=== PATIENT | female | born 1935 | race African-American/Black ===

== ENCOUNTER → 2020-07-13 15:36 | Outpatient (CLI) | payer MEDICARE, MEDICAID, SELFPAY ==
[2020-07-13 16:32] LABS: COVID19 -Nasal RAPID Negative (Negative)
== END ==
PROVIDERS: Visit Provider Physician Assistant
DX: Z11.59 Encounter for screening for other viral diseases (principal)
CPT/HCPCS: 87635

== ENCOUNTER 2020-07-16 07:29 | Day surgery (SDC) | payer MEDICARE, MEDICAID, SELFPAY ==
[2020-07-03 10:18] VITALS: BMI 37.0
[2020-07-16] VITALS (9 sets, daily range): BP systolic 102–159; BP diastolic 50–71; PULSE 61–78; RESP 12–18; TEMP 36.1–36.8; O2SAT 94–100; BMI 37.0
[2020-07-16] MEDS: LACTATED RINGERS 1,000 ML 42 ML IV (08:12)
--- NOTE | 2020-07-16 08:23 | P.HP_ITS ---
History of Present Illness History of Present Illness Date Patient Seen: 07/16/20 Time Patient Seen: 08:23 Chief complaint: SDC Narrative: A 84-year-old female with long history of bilateral hand numbness. 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 Patient History Medical History Anxiety Asthma Claustrophobia Diabetes Diabetic neuropathy Fibromyalgia Hearing impaired History of revision of total replacement of right knee joint HLD (hyperlipidemia) HTN (hypertension) Osteoarthritis Rheumatoid arthritis Surgical History History of arthroplasty of both knees History of arthroplasty of left shoulder History of arthroplasty of right shoulder History of bilateral hip arthroplasty History of lumbar spinal fusion (08/2017) History of phacoemulsification of cataract of left eye with intraocular lens implantation History of revision of total shoulder arthroplasty (2017) Hx of appendectomy Hx of eye surgery Family & Social History Social History: household members family Prior Living Arrangements House Tobacco & Substance use: Smoking Status Never smoker alcohol intake former Substance Use Type does not use Meds Home Medications and Allergies Home Medications Medication Instructions Recorded Confirmed Type albuterol sulfate 2 puff INHALATION Q4-6H 07/03/20 07/16/20 History amlodipine 10 mg PO BEDTIME 07/03/20 07/16/20 History atorvastatin 10 mg PO BEDTIME 07/03/20 07/16/20 History azelastine 1 spray INTRANASAL DAILY 07/03/20 07/16/20 History ferrous sulfate [iron] 325 mg PO DAILY 07/03/20 07/16/20 History fluticasone propionate [Flonase 1 spray INTRANASAL DAILY 07/03/20 07/16/20 History Allergy Relief] furosemide [Lasix] 40 mg PO QMWF 07/03/20 07/16/20 History hydrochlorothiazide 25 mg PO SEEINSTR 07/03/20 07/16/20 History linagliptin [Tradjenta] 5 mg PO QAM 07/03/20 07/16/20 History losartan 100 mg PO DAILY 07/03/20 07/16/20 History lubiprostone [Amitiza] 24 mcg PO DAILY 07/03/20 07/16/20 History metoprolol succinate 50 mg PO DAILY 07/03/20 07/16/20 History pregabalin 100 mg PO TID 07/03/20 07/16/20 History ropinirole 1 mg PO BEDTIME 07/03/20 07/16/20 History sumatriptan succinate 50 mg PO Q2-4H PRN 07/03/20 07/16/20 History tizanidine 4 mg PO BEDTIME 07/03/20 07/16/20 History tramadol 50 mg PO Q8H PRN 07/03/20 07/16/20 History Allergies Allergy/AdvReac Type Severity Reaction Status Date / Time morphine Allergy Severe Anaphylaxis Verified 07/16/20 07:52 streptomycin Allergy Severe Anaphylaxis Verified 07/16/20 07:52 Review of Systems Review of Systems ROS: Yes All systems reviewed with the patient and are negative except as otherwise documented Exam Vital Signs (past 8 hours): - 07/16/20 07:58 Temperature 97.3 F L Pulse Rate 78 Respiratory Rate 16 Blood Pressure 152/71 H Pulse Oximetry 97 Oxygen Delivery Method Room Air Narrative Exam Narrative: On physical exam, signs of thenar atrophy bilaterally. No sign of any intrinsic wasting. Patient is still able to fully flex and extend the fingers no sign of any clawing. Still able to oppose the thumbs. Significant neuropathy in the median nerve distribution bilaterally. Signs of ulnar neuropathy just on the left side no sign of any cervical radiculopathy. Positive Tinel's, thumb compression, Phalens test bilaterally. 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 Due to these findings we did recommend surgical treatment to decompress the median nerve at the carpal tunnel as well as the ulnar nerve at the cubital tunnel. In regards to the median nerve main goal of surgery is to keep things from getting worse. Discussed with the patient that due to the findings on the nerve study not exp ecting much in regards to overall improvement of the nerve due to the amount of damage it has sustained. I would expect better overall improvement in the ulnar nerve left side. Patient fully understands the risks and limitations associated procedure questions and concerns were answered to satisfaction. Time Spent With Patient Time with patient: less than 15 minutes
--- NOTE | 2020-07-16 08:26 | PM.PREOP ---
Pre-operative Note COVID-19 COVID-19 status: Negative Result date/Date tested (Pos, Neg/Pending): 07/14/20 Interval Note History & Physical reviewed/Exam performed by Physician: Yes Changes to H&P: No
[2020-07-16] MEDS: CEFAZOLIN 2 GM/100 ML FROZ.PIGGY IV (08:43)
--- NOTE | 2020-07-16 09:02 | SUR.OPER ---
Supine on padded OR bed, head on pillow, right arm secured on padded arm boards at <90 degrees abduction, left arm prepped into field and supported on hand table, legs uncrossed, safety belt at thigh, tape over blanket over lower legs.
[2020-07-16] MEDS: BUPIVACAINE 0.5% W/ EPI (PF) 30 ML VIAL INJ (09:05)
--- NOTE | 2020-07-16 09:33 | P.OP_ITS ---
Operative Date/Time/Diagnoses Date of procedure: 07/16/20 Time of procedure: 09:00 Pre-op diagnosis: Left carpal tunnel, left cubital tunnel Post-op diagnosis: same Procedure & Clinicians Procedure: Left carpal tunnel release, left cubital tunnel release Same procedure as scheduled: Yes Indications: Physical exam findings as well as EMG study positive for both carpal tunnel and cubital tunnel Surgeon: Jayson Hopkins Click Yes if Unassisted: Yes Anesthesia Type: General Operative Notes Findings: Compression of the median nerve at the carpal tunnel compression of the ulnar at cubital tunnel Closure Type: primary Specimen(s): none sent Estimated Blood Loss (mL): 0 Blood products transfused: none Tourniquet time (min): 25 Procedure in detail: On date of service, the patient was met in the holding area. Patients operative site was signed and witnessed by the OR staff. The surgery was once again discussed with the patient, and any remaining questions they had were answered fully. Patient was taken back to the operating theater and placed on the operating table in a supine position. Great care was taken to ensure that all bony prominences were carefully padded. A well-padded tourniquet was placed up along the upper extremity. A timeout was performed to verify patient's name, procedure, and operative site. The arm was then prepped and draped in the normal sterile fashion. A 15 blade was used to incise through skin In the center of the palm. Pickups and tenotomy scissors were used to dissect down until the palmar fascia was visualized. The palmar fascia was then sharply incised using a 15 blade. This gave us good visualization of the carpal ligament. A small opening was made into the carpal ligament, and a curved hemostat was placed into that opening. A 15 blade was then used to sharply incise the carpal ligament with the structures beneath being protected by the hemostat. Pickups and Metzenbaum scissors were used to complete the decompression both distally and proximally. This provided a complete dec ompression of the median nerve. Wound was irrigated and then closed with nylon. We then turned our attention to the cubital tunnel. Ten blade was used to make an incision centered over the cubital tunnel. Ten blade was used incise through skin and fascial tissue. Electrocautery was used to achieve hemostasis. Deep knife was used to proceed with sharp dissection. Next, Metzenbaum scissors were used to identify the nerve proximal to the cubital tunnel. This was then decompressed proximally. Next, the ulnar nerve was decompressed through the cubital tunnel by releasing the cubital tunnel. This decompression was continued distally providing a complete decompression of the nerve. Wound was irrigated and then closed in a layered fashion. The hand was then cleaned, dried, and dressed. Patient was taken to the PACU in stable condition. Complications: none Post-operative Condition: stable Disposition: PACU Plan for aftercare: Patient will follow our postoperative protocol for carpal tunnel cubital tunnel release.
[2020-07-16] MEDS: fentaNYL 100 MCG/2 ML INJ IV ×2 (09:48→09:54)
[2020-07-16] MEDS: HYDROCODONE/ACET 5/325 TABLET 1 TAB PO (10:02)
== END 2020-07-16 11:00 | disposition home or self-care (01) ==
PROVIDERS: PCP Internal Medicine; Referring Provider Internal Medicine; Visit Provider Orthopaedic Surgery
PROC: (CPT 64721; principal; 2020-07-16 08:45)
PROC: (CPT 64718; 2020-07-16 08:45)
DX: G56.02 Carpal tunnel syndrome, left upper limb (principal); G56.22 Lesion of ulnar nerve, left upper limb; E11.9 Type 2 diabetes mellitus without complications; I10 Essential (primary) hypertension; J45.909 Unspecified asthma, uncomplicated
CPT/HCPCS: 64718; 64721; J0690; J1100; J2405; J2704; J3010

== ENCOUNTER → 2020-10-23 11:31 | Outpatient (CLI) | payer OTHER, MEDICAID, SELFPAY ==
[2020-10-23 13:29] LABS: COVID19 -Nasal RAPID Negative (Negative)
== END ==
PROVIDERS: PCP Internal Medicine; Visit Provider Nurse Practitioner Family
DX: Z01.812 Encounter for preprocedural laboratory examination (principal); Z20.822 Contact with and (suspected) exposure to COVID-19
CPT/HCPCS: 87635; C9803

== ENCOUNTER 2020-10-24 11:48 | Day surgery (SDC) | payer OTHER, MEDICAID, SELFPAY ==
[2020-10-24 12:31] VITALS: BP 172/74; PULSE 76; RESP 24; TEMP 36.9; O2SAT 97; BMI 38.0
[2020-10-24] MEDS: LACTATED RINGERS 1,000 ML 42 ML IV (13:00)
--- NOTE | 2020-10-24 13:44 | PM.PREOP ---
Pre-operative Note COVID-19 COVID-19 status: Negative Result date/Date tested (Pos, Neg/Pending): 10/22/20 Interval Note History & Physical reviewed/Exam performed by Physician: Yes Changes to H&P: No
--- NOTE | 2020-10-24 13:44 | PM.HP.1 ---
History of Present Illness History of Present Illness Date Patient Seen: 10/24/20 Time Patient Seen: 13:45 Chief complaint: SDC Narrative: 84-year-old female with a history of bilateral carpal tunnel. Patient is status post a left carpal tunnel release. Patient is still having issues with the right hand and is interested in a right carpal tunnel release. Patient History Medical History Anxiety Asthma Claustrophobia Diabetes Diabetic neuropathy Fibromyalgia Hearing impaired History of revision of total replacement of right knee joint HLD (hyperlipidemia) HTN (hypertension) Osteoarthritis Rheumatoid arthritis Right carpal tunnel syndrome Surgical History History of arthroplasty of both knees History of arthroplasty of left shoulder History of arthroplasty of right shoulder History of bilateral hip arthroplasty History of lumbar spinal fusion (08/2017) History of phacoemulsification of cataract of left eye with intraocular lens implantation History of revision of total shoulder arthroplasty (2017) Hx of appendectomy Hx of eye surgery Family & Social History Social History: household members family Prior Living Arrangements House Tobacco & Substance use: Smoking Status Never smoker alcohol intake former Substance Use Type does not use Meds Home Medications and Allergies Home Medications Medication Instructions Recorded Confirmed Type Tradjenta 5 mg PO QAM 07/03/20 10/24/20 History albuterol sulfate 2 puff INHALATION Q4-6H 07/03/20 10/24/20 History amlodipine 10 mg PO BEDTIME 07/03/20 10/24/20 History atorvastatin 10 mg PO BEDTIME 07/03/20 10/24/20 History azelastine 1 spray INTRANASAL DAILY 07/03/20 10/24/20 History ferrous sulfate [iron] 325 mg PO DAILY 07/03/20 10/24/20 History fluticasone propionate [Flonase 1 spray INTRANASAL DAILY 07/03/20 10/24/20 History Allergy Relief] furosemide [Lasix] 40 mg PO SEEINSTR 07/03/20 10/24/20 History hydrochlorothiazide 25 mg PO QMWF 07/03/20 10/24/20 History metoprolol succinate 50 mg PO DAILY 07/03/20 10/24/20 History pregabalin 100 mg PO TID 07/03/20 10/24/20 History sumatriptan succinate 50 mg PO Q2-4H PRN 07/03/20 10/15/20 History tramadol 50 mg PO Q8H PRN 07/03/20 10/24/20 History Vitamin D3 1 tab PO DAILY 10/15/20 10/24/20 History ascorbic acid (vitamin C) [Vitamin 500 mg PO DAILY 10/15/20 10/24/20 History C] calcium 1 tab PO DAILY 10/15/20 10/24/20 History naproxen sodium [Aleve] 220 mg PO Q8H PRN 10/15/20 10/24/20 History losartan 100 mg PO DAILY 10/24/20 10/24/20 History Allergies Allergy/AdvReac Type Severity Reaction Status Date / Time morphine Allergy Severe Anaphylaxis Verified 07/16/20 07:52 streptomycin Allergy Severe Anaphylaxis Verified 07/16/20 07:52 Review of Systems Review of Systems ROS: Yes All systems reviewed with the patient and are negative except as otherwise documented Exam Vital Signs (past 8 hours): - 10/24/20 12:31 Temperature 98.4 F Pulse Rate 76 Respiratory Rate 24 Blood Pressure 172/74 H Pulse Oximetry 97 Oxygen Delivery Method Room Air Narrative Exam Narrative: On physical exam, no sign of any thenar atrophy or intrinsic wasting. Patient has full range of motion of her wrist and fingers. Decreased sensation in the median nerve distribution. Positive Tinel's, thumb compression and Phalen test. Assessment & Plan Assessment & Plan narrative: 84-year-old female with physical exam findings as well as EMG study positive for right carpal tunnel. Patient is interested in proceeding with a right carpal tunnel release. She fully understands the risks and limitations associated with the procedure and all of her questions and concerns were answered to her full satisfaction. COVID-19 COVID-19 status: Negative Time Spent With Patient Time with patient: less than 15 minutes
--- NOTE | 2020-10-24 14:29 | SUR.OPER ---
Supine on padded OR bed, head on pillow on foam wedge, left arm secured on padded arm boards at <90 degrees abduction, right arm draped free on black arm table legs uncrossed, safety belt at thigh, tape over blanket over lower legs.
[2020-10-24] MEDS: BUPIVACAINE 0.5% W/ EPI (PF) 30 ML VIAL INJ (14:35)
[2020-10-24 14:49] VITALS: BP 139/71; PULSE 80; RESP 15; TEMP 36.4; O2SAT 95
[2020-10-24 14:54] VITALS: BP 142/72; PULSE 69; RESP 12; O2SAT 97
[2020-10-24 14:59] VITALS: BP 139/86; PULSE 83; RESP 15; O2SAT 98
[2020-10-24 15:04] VITALS: BP 177/72; PULSE 80; RESP 13; O2SAT 97
[2020-10-24] MEDS: HYDROCODONE/ACET 5/325 TABLET 1 TAB PO (15:04)
[2020-10-24 15:09] VITALS: BP 182/73; PULSE 81; RESP 10; TEMP 36.7; O2SAT 95
--- NOTE | 2020-11-07 10:01 | PM.OP.1 ---
Operative Date/Time/Diagnoses Date of procedure: 10/24/20 Time of procedure: 16:00 Pre-op diagnosis: Right carpal tunnel Post-op diagnosis: same Procedure & Clinicians Procedure: Right carpal tunnel release Same procedure as scheduled: Yes Indications: Right carpal tunnel Surgeon: Jayson Hopkins Click Yes if Unassisted: Yes Anesthesia Type: General Operative Notes Closure Type: primary Specimen(s): none sent Estimated Blood Loss (mL): 0 Blood products transfused: none Tourniquet time (min): 19 Procedure in detail: On date of service, the patient was met in the holding area. Patients operative site was signed and witnessed by the OR staff. The surgery was once again discussed with the patient, and any remaining questions they had were answered fully. Patient was taken back to the operating theater and placed on the operating table in a supine position. Great care was taken to ensure that all bony prominences were carefully padded. A well-padded tourniquet was placed up along the upper extremity. A timeout was performed to verify patient's name, procedure, and operative site. The arm was then prepped and draped in the normal sterile fashion. A 15 blade was used to incise through skin In the center of the palm. Pickups and tenotomy scissors were used to dissect down until the palmar fascia was visualized. The palmar fascia was then sharply incised using a 15 blade. This gave us good visualization of the carpal ligament. A small opening was made into the carpal ligament, and a curved hemostat was placed into that opening. A 15 blade was then used to sharply incise the carpal ligament with the structures beneath being protected by the hemostat. Pickups and Metzenbaum scissors were used to complete the decompression both distally and proximally. This provided a complete decompression of the median nerve. The wound was then irrigated and closed with nylon. The hand was then cleaned, dried, and dressed. Patient was taken to the PACU in stable condition. Complications: none Post-operative Condition: stable Disposition: PACU Plan for aftercare: Patient will follow our postoperative protocol for carpal tunnel release
== END 2020-10-24 15:28 | disposition home or self-care (01) ==
PROVIDERS: PCP Internal Medicine; Referring Provider Orthopaedic Surgery; Visit Provider Orthopaedic Surgery
PROC: (CPT 64721; principal; 2020-10-24 13:15)
DX: G56.01 Carpal tunnel syndrome, right upper limb (principal); F41.9 Anxiety disorder, unspecified; J45.909 Unspecified asthma, uncomplicated; I10 Essential (primary) hypertension; E78.5 Hyperlipidemia, unspecified; M06.9 Rheumatoid arthritis, unspecified; E11.42 Type 2 diabetes mellitus with diabetic polyneuropathy
CPT/HCPCS: 64721; J1100; J2405; J2704; J3010

== ENCOUNTER → 2022-03-13 11:51 | Outpatient (CLI) | payer OTHER, MEDICAID, SELFPAY ==
--- NOTE | 2022-03-13 | DI.CT.S_ITS ---
PROCEDURE: CT ABDOMEN PELVIS W CON INDICATIONS: RIGHT LOWER QUADRANT PAIN TECHNIQUE: After the administration of oral and IV contrast, axial sections were acquired from the lung bases to the pubic symphysis. Coronal and sagittal reformats were performed. For radiation dose reduction, the following was used: automated exposure control, adjustment of mA and/or kV according to patient size. COMPARISON: None. FINDINGS: Image quality: Excellent. Lung bases: Unremarkable. Heart: No significant findings. ABDOMEN: Liver: Unremarkable. Gallbladder: Gallbladder is distended. No gallbladder wall thickening or calcified gallstone is seen. Biliary ducts: Unremarkable. Pancreas: Unremarkable. Spleen: Unremarkable. Adrenal Glands: Unremarkable. Kidneys and Ureters: Bilateral renal cysts are seen. No stones or hydronephrosis. No hydroureter. Stomach and Bowel: There is no bowel obstruction. No stomach or small bowel wall thickening. Appendix is not definitively identified. No bowel wall thickening or mesenteric fat stranding is seen in right lower quadrant abdomen. [id number] fecal stasis in the colon is seen. Moderate sigmoid diverticulosis is noted without colonic wall thickening or pericolonic fat stranding. No abscess collection. Peritoneum: No abnormal intraperitoneal fluid. No free air. Ventral Wall: Small umbilical hernia is seen containing fat only. Abdominal Nodes: No retroperitoneal or mesenteric adenopathy by size criteria. Vessels: Aorta and inferior vena cava are normal in size. Moderate atherosclerotic calcifications in abdominal aorta is seen. PELVIS: Pelvic Organs: Unremarkable. Bladder: Unremarkable. Pelvic Nodes: No enlarged lymph nodes. Miscellaneous: No inguinal hernias are seen. Bones: Patient is status post bilateral total hip arthroplasty. Fixation of lower thoracic spine is also seen. No suspicious bony lesion. No acute vertebral body compression fracture. Degenerative disc disease throughout lower thoracic and lumbar spine is seen. IMPRESSION: 1. Appendix is not identified. No CT evidence of acute appendicitis seen in right lower quadrant abdomen. Mild constipation. Sigmoid diverticulosis without CT evidence of acute diverticulitis. No abscess collection. No free fluid or free air. 2. No renal stone or hydronephrosis. Bilateral renal cysts. 3. Distended gallbladder without CT evidence of acute cholecystitis. 4. Extensive postsurgical changes in lower thoracic spine and bilateral hip. Degenerative disc disease throughout thoracic and lumbar spine. No acute compression fracture. Dictated by: Inocente Barboza M.D. on 03/13/2022 at 15:58 Approved by: Inocente Barboza M.D. on 03/13/2022 at 16:04
[2022-03-13 12:49] LABS: Estimated Glomerular Filt Rate > 60 mL/min (>60)
== END ==
PROVIDERS: PCP Internal Medicine; Referring Provider Internal Medicine; Visit Provider Internal Medicine
DX: K57.30 Diverticulosis of large intestine without perforation or abscess without bleeding (principal); K59.00 Constipation, unspecified; R10.31 Right lower quadrant pain; M51.34 Other intervertebral disc degeneration, thoracic region; M51.36 Other intervertebral disc degeneration, lumbar region; Z79.899 Other long term (current) drug therapy
CPT/HCPCS: 36415; 74177; 82565; Q9967

== ENCOUNTER → 2024-04-05 11:51 | Outpatient (CLI) | payer MEDICARE, MEDICAID, SELFPAY ==
[2024-04-05 12:24] LABS: Add Manual Diff / Slide Review NO; Basophils Absolute Auto 0 /uL (0-100); Basophils Percent Auto 0.3 % (0-2); Eosinophils Absolute Auto 100 /uL (0-450); Eosinophils Percent Auto 1.8 % (2-4); Hematocrit 34.9 % (36-46); Hemoglobin 11.7 g/dL (12.0-16.0); Lymphocytes Absolute Auto 2000 /uL (1100-4500); Lymphocytes Percent Auto 35.8 % (25-40); Mean Corpuscular HGB Conc 33.6 % (30-36); Mean Corpuscular Hemoglobin 32.9 PG (26-34); Mean Corpuscular Volume 98.1 fL (80-100); Monocytes Absolute Auto 700 /uL (0-900); Monocytes Percent Auto 11.9 % (3-14); Neutrophils Absolute Auto 2900 /uL (1500-7000); Neutrophils Percent Auto 50.2 % (50-75); Platelet Count 198 X10^3/uL (150-400); Red Blood Cell Count 3.56 X10^6/uL (4.0-5.2); Red Cell Distribution Width 13.4 % (11.6-14.8); White Blood Cell Count 5.7 X10^3/uL (4.5-11.0)
[2024-04-05 12:33] LABS: Hemoglobin A1C% w Est Avg Glu 5.4 % (4.0-6.0)
[2024-04-05 12:40] LABS: BUN Creatinine Ratio 20.4 (6-22); Blood Urea Nitrogen 20 mg/dL (7-17); Calcium 9.6 mg/dL (8.4-10.2); Carbon Dioxide 28 mmol/L (22-32); Chloride 107 mmol/L (98-107); Estimated Glomerular Filt Rate 55 mL/min (>60); Glucose 129 mg/dL (80-110); HEMOLYSIS < 15 (0-50); Potassium 3.7 mmol/L (3.4-5.1); Sodium 142 mmol/L (137-145)
--- NOTE | 2024-04-05 12:56 | EKG_ITS ---
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
== END ==
PROVIDERS: PCP Internal Medicine; Referring Provider Orthopaedic Surgery Orthopaedic Surgery of the Spine; Visit Provider Orthopaedic Surgery Orthopaedic Surgery of the Spine
DX: Z01.812 Encounter for preprocedural laboratory examination (principal); Z01.818 Encounter for other preprocedural examination; R73.9 Hyperglycemia, unspecified
CPT/HCPCS: 36415; 80048; 83036; 85025; 93005

== ENCOUNTER 2024-04-12 13:50 | Day surgery (SDC) | payer MEDICARE, MEDICAID, SELFPAY ==
[2024-04-06 14:41] VITALS: BMI 35.9
[2024-04-12] VITALS (16 sets, daily range): BP systolic 140–206; BP diastolic 70–104; PULSE 68–92; RESP 12–18; TEMP 36.2–36.6; O2SAT 91–100; BMI 35.9
--- NOTE | 2024-04-12 | DI.RAD.S_ITS ---
PROCEDURE: XR LUMBAR SPINE 2-3V INDICATIONS: LAMINECTOMY L4-5 TECHNIQUE: Intraoperative fluoroscopic spot films COMPARISON: None. FINDINGS: L4-5 laminectomy in progress IMPRESSION: Fluoroscopic guidance Approved by: Armin Parham M.D. on 04/13/2024 at 17:04
[2024-04-12] MEDS: LACTATED RINGERS 1,000 ML 42 ML IV ×2 (14:48→16:50)
[2024-04-12] MEDS: ACETAMINOPHEN 325 MG TABLET 975 MG PO (14:51)
--- NOTE | 2024-04-12 15:52 | PM.PREOP ---
Pre-operative Note Interval Note History & Physical reviewed/Exam performed by Physician: Yes Changes to H&P: No
--- NOTE | 2024-04-12 16:20 | PM.OP.1 ---
Operative Date/Time/Diagnoses Date of procedure: 04/12/24 Time of procedure: 16:40 Pre-op diagnosis: 1. Lumbar spinal stenosis with neurogenic claudication Post-op diagnosis: same Procedure & Clinicians Procedure: 1. L4-5 laminectomies with bilateral partial facetecomies 2. L4-5 partial discectomy for decompression 3. Utilization of microsurgical technique and operating microscope Same procedure as scheduled: Yes Indications: Patient has been having chronic back pain and worsening lumbar radiculopathy and symptoms of neurogenic claudication. Patient was found to have multiple level degenerative lumbar with spondylolisthesis and severe spinal stenosis at L4-5 correlating with her symptoms. Patient failed multiple conservative management with worsening pain weakness and numbness in her lower extremity. Patient has been having difficulty performing activity of daily living. After discussing risks benefits of treatment options, patient elected proceed with surgery. Surgeon: Saba Gao Casting Machine Adjuster: Lesly Diaz Click Yes if Unassisted: No Anesthesia Type: General Operative Notes Closure Type: primary Specimen(s): none sent Estimated Blood Loss (mL): 5 Blood products transfused: none Procedure in detail: Patient was seen in the preoperative area. Risks and benefits of the surgery was discussed with the patient. Informed consent was obtained from the patient and placed in the chart. Surgical site was marked. Patient was taken to the operative room. General anesthesia was administered. Prophylactic antibiotic was given to the patient less than 30 min before the incision was made. Patient was placed into a prone position on the Danielito table. Patient's back was then prepped and draped in the sterile fashion. Time-out was performed at this time. Using AP and lateral C-arm imaging the interval between L4-5 was identified and marked on patient's back. A 1 inch incision 1 in from midline was made on the right side. The patient was identified to have auto fusion on her MRI image at L4-5. Additional decompression was performed by performing a right-sided L4-5 total facetectomy. The fascia was incised in line with skin incision. Globus MARS retractors was placed inside the incision and docked onto the L4 lamina. Using microsurgical technique and operating microscope, a L4 laminectomy was performed using a Kerrison rongeur. Liagamentum flavum was resected at the site of the laminotomy. Either side of the dura was exposed. Left partial facetcomies and right total facetectomy was performed was performed to further decompress the lateral recess. There was no evidence of instability after the laminectomy facetectomy was completed due to patient's auto fusion at L4-5 interbody. After the laminectomy was completed, the area medial lateral superior and inferior to the area of the laminectomy was inspected and explored using a micro curette. No other impinging structure was identified. The wound was then irrigated with sterile normal saline. 40 mg Depo-Medrol was placed into the epidural space. The deep fascia was closed with 1-0 Vicryl. The subcutaneous tissue was closed with 2-0 Vicryl. The skin was closed with 4-0 Monocryl. Patient tolerated the procedure well. There were no complications. Patient was transferred recovery room in stable condition. The Operation could not have been safely performed without compromising the technical result or length of the procedure, without the assistance of a skilled surgical elastic knitter hand frame. The surgical elastic knitter hand frame was medically necessary for proper positioning, retraction and manipulation of instruments, proper exposure, surgical preparation, and manipulation of tissue. Complications: none Post-operative Condition: stable Disposition: PACU Plan for aftercare: Admit for overnight observation
[2024-04-12] MEDS: CEFAZOLIN 2 GM/100 ML PREMIX 100 ML IV (16:22)
--- NOTE | 2024-04-12 16:44 | SUR.OPER ---
Prone on spine table, head in foam head support, padded chest and pelvic supports, gel pad at knees, lower legs supported by pillows; nipples, genitalia and toes free of pressure, arms secured on foam padded arm boards at <90 degrees abduction. Tape over blanket at thigh secured to table.
[2024-04-12] MEDS: BUPIVACAINE 0.25% (PF) 30 ML, EPINEPHrine 0.15 MG INJ (16:48)
[2024-04-12] MEDS: HYDROMORPHONE 1 MG INJ IV ×4 (18:10→18:30)
[2024-04-12] MEDS: methocarbamoL 500 MG TABLET PO (18:24)
[2024-04-12] MEDS: OXYCODONE IR 5 MG TABLET PO (18:54)
[2024-04-12] MEDS: LOSARTAN 50 MG TABLET 100 MG PO (20:27)
[2024-04-12] MEDS: AMLODIPINE 5 MG TABLET PO (21:48)
[2024-04-12] MEDS: SENNOSIDES 8.6 MG TABLET 17.2 MG PO (21:52)
[2024-04-12] MEDS: ATORVASTATIN 20 MG TABLET 10 MG PO (21:53)
[2024-04-12] MEDS: DOCUSATE 100 MG CAPSULE PO (21:55)
[2024-04-12] MEDS: LACTATED RINGERS 1,000 ML 125 ML IV (21:56)
[2024-04-13] MEDS: CEFAZOLIN 2 GM/100 ML PREMIX 100 ML IV ×2 (00:09→08:56)
[2024-04-13] MEDS: HYDROCODONE/ACET 5/325 TABLET 1 TAB PO ×2 (03:14→07:27)
[2024-04-13 04:00] VITALS: BP 142/80; PULSE 75; RESP 16; TEMP 36.3; O2SAT 100
[2024-04-13] MEDS: LACTATED RINGERS 1,000 ML 125 ML IV (06:30)
--- NOTE | 2024-04-13 07:49 | P.DS_ITS ---
History of Present Illness History of Present Illness Chief complaint: [facility] [place] Narrative: Irene is a pleasant 88 year old female who is POD#1 s/p L4-5 laminectomies with bilateral partial facetecomies and L4-5 partial discectomy for decompression by Dr. Gao. This morning she reports she is doing well, having some moderate pain still but is able to be controlled w/ oral pain medication. Lives at home w/ granddaughter and her who are willing and able to aid in patients post-op care, they do have steps up to the house but no steps to navigate within the home. She has worked w/ PT twice today and is doing well, she was able to do stairs and walk in the hallways. Currently has a purewik in place. Denies fever, chills, chest pain, SOB, nausea, vomiting. Operative Date/Time/Diagnoses Date of procedure: 04/12/24 Time of procedure: 16:40 Pre-op diagnosis: 1. Lumbar spinal stenosis with neurogenic claudication Post-op diagnosis: same Procedure & Clinicians Procedure: 1. L4-5 laminectomies with bilateral partial facetecomies 2. L4-5 partial discectomy for decompression 3. Utilization of microsurgical technique and operating microscope Same procedure as scheduled: Yes Indications: Patient has been having chronic back pain and worsening lumbar radiculopathy and symptoms of neurogenic claudication. Patient was found to have multiple level degenerative lumbar with spondylolisthesis and severe spinal stenosis at L4-5 correlating with her symptoms. Patient failed multiple conservative management with worsening pain weakness and numbness in her lower extremity. Patient has been having difficulty performing activity of daily living. After discussing risks benefits of treatment options, patient elected proceed with surgery. Surgeon: Saba Gao Pony Rougher: Lesly Diaz Click Yes if Unassisted: No Anesthesia Type: General Discharge Providers Provider Discharge Date: 04/13/24 Primary care physician: Patricia Obrien MD Consults: 04/12/24 20:06 Consult to Occupational Therapy Evaluate & Treat Comment: Physician Instructions: Evaluate and treat Consult to Physical Therapy Evaluate & Treat Comment: Physician Instructions: Evaluate and Treat Discharge provider: Elva Ferrer PA-C Summary Hospital Course Discharge Diagnosis: s/p L4-5 laminectomies with bilateral partial facetecomies and L4-5 partial discectomy for decompression Hospital Course: Hospital course largely uncomplicated, difficulty mobilizing initially in the AM of POD#1. Exam Vital Signs (past 8 hours): - 04/13/24 04:00 Temperature 97.4 F L Pulse Rate 75 Respiratory Rate 16 Blood Pressure 142/80 H Pulse Oximetry 100 Oxygen Delivery Method Nasal Cannula Oxygen Flow Rate 2 Narrative Exam Narrative: Patient lying comfortably in bed during our interview today. No acute distress. AOx3. 5/5 strength with DF, PF, EHL bilaterally. Gross sensation intact throughout bilateral lower extremities. Calves soft and compressible w/o swelling bilaterally. SCDs are not on however. Brisk capillary refill, pulses intact. Post-surgical dressing clean, dry and intact over the lumbar spine without drainage. [facility] Medical History Right carpal tunnel syndrome Claustrophobia Anxiety Diabetes HLD (hyperlipidemia) HTN (hypertension) Asthma Hearing impaired Osteoarthritis Rheumatoid arthritis Diabetic neuropathy Fibromyalgia History of revision of total replacement of right knee joint Surgical History (Updated 04/06/24 @ 14:48 by Irena Paredes RN) History of carpal tunnel surgery of right wrist (10/24/20) History of carpal tunnel surgery of left wrist (07/16/20) Hx of appendectomy Hx of eye surgery History of phacoemulsification of cataract of left eye with intraocular lens implantation History of arthroplasty of both knees History of bilateral hip arthroplasty History of arthroplasty of left shoulder History of revision of total shoulder arthroplasty (2018) History of arthroplasty of right shoulder History of lumbar spinal fusion (08/2017) Social History household members: family Smoking Status: Never smoker alcohol intake: former Discharge Assessment & Plan Assessment and Plan Assessment: Stable s/p L4-5 laminectomies with bilateral partial facetecomies and L4-5 partial discectomy for decompression. Plan of Treatment: 1) Plan to discharge to home today with grandson pending PT evaluation. 2) Continue multimodal pain management. Post-op pain Rx sent to pharmacy today. 3) Mechanical DVT prophylaxis. Encouraged bed leg exercises and movement to help prevent blood clot. 4) Maintain BLT restrictions for 6 weeks. 5) Keep dressing intact, clean, dry until 2 week postop appointment. No soaking the incision site in pools or tubs. No topical ointments or creams to the incision site. 6) Follow up at [facility] in 2 weeks for a postop appointment and wound check. All patient and her grandsons questions were answered, they demonstrates understanding and are in agreement with the plan. Call our office if any questions or concerns arise. Discharge Plan Discharge Plan Patient Disposition: Home Provider Discharge Comment: Rxs for oxycodone and Zofran sent to [facility] from office. Discharge orders & Medications Discharge Orders: Discharge (Order); Ordered 04/13/24 Ordered By: Elva Ferrer Prescriptions: New hydrocodone-acetaminophen 5-325 mg Tablet 1 tab PO Q4H PRN (Reason: Pain, Moderate (4-6)) Qty: 30 0RF docusate sodium 100 mg Capsule 100 mg PO BID Qty: 30 0RF Continued ascorbic acid (vitamin C) [Vitamin C] 500 mg Tablet 500 mg PO DAILY Vitamin D3 1 tab PO DAILY calcium 1 tab PO DAILY acetaminophen 325 mg Tablet 325 mg PO Q6H PRN (Reason: Pain (Scale Score 1-3)) duloxetine 60 mg capsule 120 mg PO QPM losartan 50 mg tablet 50 mg PO DAILY furosemide [Lasix] 40 mg Tablet 20 mg PO SEEINSTR Patient Comments: Takes on wednesday, wednesday, wednesday, , wednesday atorvastatin 10 mg Tablet 10 mg PO BEDTIME metoprolol succinate 50 mg Tablet Extended Release 24 Hr 50 mg PO DAILY amlodipine 10 mg Tablet 5 mg PO QAM ferrous sulfate [iron] 325 mg (65 mg iron) Tablet 325 mg PO DAILY albuterol sulfate 90 mcg/actuation Hfa Aerosol Inhaler 2 puff INHALATION Q4-6H fluticasone propionate [Flonase Allergy Relief] 50 mcg/actuation [place],Suspension 1 spray INTRANASAL DAILY Tradjenta 5 mg Tablet 5 mg PO QAM Follow up/Referrals: Patricia Obrien MD [Primary Care Provider] - Saba Gao MD [Physician] - 05/03/24 1:00 pm (Follow up w/ Maurilio Doe PA-C, at [facility] office in [place] on 05/03/24 at 1:00pm You also have a 6 week post-op appointment at our [employer] office on 05/23/24 at 1:20pm with Dr. Gao.) Diet/Activity/Treatments Diet: Diet as Tolerated and Regular Activity: No deep bending or twisting at the waist. No lifting more than 10 pounds. Skin/Wound/Dressing Care Report to your healthcare provider any signs of infection, such as:: chills, fever, night sweats, unusual drainage and unusual redness Dressing: May shower. Keep dressing as dry as possible. If dressing becomes wet or dirty, may remove and replace with clean, dry gauze. No bathing or otherwise soaking incision. Do not apply any creams, ointments, or lotions to incision. Visit Report/Discharge Packet Instructions: DI for Laminectomy, DI for Prescription Opioid Use Stand Alone Forms: Patient Portal/API Discharge Data Primary Care Provider: Patricia Obrien Attending Provider: Saba Gao
[2024-04-13] MEDS: ACETAMINOPHEN 325 MG TABLET 650 MG PO (08:55)
[2024-04-13 09:03] VITALS: BMI 35.9
--- NOTE | 2024-04-13 09:06 | PT.IIE ---
Current Diagnoses Spinal stenosis, lumbar region with neurogenic claudication (04/12/24) Surgery Performed Operation Date: 04/12/24 15:45 Actual Procedures p L4-5 Laminectomy - Saba Gao MD Surgical History (Last Updated 04/06/24 @ 14:48 by Irena Paredes RN) History of arthroplasty of both knees History of arthroplasty of left shoulder History of arthroplasty of right shoulder History of bilateral hip arthroplasty History of carpal tunnel surgery of left wrist (07/16/20) History of carpal tunnel surgery of right wrist (10/24/20) History of lumbar spinal fusion (08/2017) History of phacoemulsification of cataract of left eye with intraocular lens implantation History of revision of total shoulder arthroplasty (2017) Hx of appendectomy Hx of eye surgery Medical History (Last Reviewed 10/24/20 @ 13:45 by Jayson Hopkins MD) Anxiety Asthma Claustrophobia Diabetes Diabetic neuropathy Fibromyalgia Hearing impaired History of revision of total replacement of right knee joint HLD (hyperlipidemia) HTN (hypertension) Osteoarthritis Rheumatoid arthritis Right carpal tunnel syndrome Physical Therapy Inpatient Evaluation/Re-Eval M1 PT/OT-IP Prior Functional Status Start: 04/13/24 08:02 Freq: NEEDED Status: Active Protocol: Document 04/13/24 08:00 PRIMO (Rec: 04/13/24 09:06 PRIMO [id number]) Medical Review Prior Functional Status Medical History Reviewed Yes Communication Unsure baseline diet and pt is [place] Mobility and Gait Pt reports she ambulates in her home with 4WRW and performs stair training with rail and cane Activities of Daily Living and IADL's Grand-daughter assists with bathing and dressing Social History Household Members family Living Arrangements House Number of Floors (Floors) One Floor Number of Stairs To Enter/Railing? 5 steps and then 7 steps with B rails and she uses one rail and cane to mobilize on steps at home Home Environment High Toilet,Walk in Shower Home Equipment Four Wheel Walker,Raised Toilet Seat w/Armrests,Shower Seat with Backrest,Hand Held Shower,Grab Bars Near Toilet, Grab Bars In Shower Additional Social History Comment Adjustable bed without rails M2 PT-IP Current Condition Start: 04/13/24 08:02 Freq: NEEDED Status: Active Protocol: Document 04/13/24 08:00 MB (Rec: 04/13/24 09:06 [id number]) Physical Therapy Current Condition Current Condition Evaluation Date 04/13/24 Treatment Diagnosis S/p L4-5 laminectomy and partial disectomy M3 PT-IP Subjective Start: 04/13/24 08:02 Freq: NEEDED Status: Active Protocol: Document 04/13/24 08:00 MB (Rec: 04/13/24 09:06 [id number]) Subjective Physical Therapy Visit Type Type Initial Evaluation Visit Start Time 08:00 Visit Stop Time 08:40 Number of SPEECH SCIENTIST Visits 0 Physical Therapy Visit Comments Patient Comments Pt states that her pain is high and she is agreeable to PT. Therapy Pain Assessment Pain When Pain Assessed During Mobility Pain Present Pain Present Pain Reported Location back Intensity 8 Scale Used Numeric (0 - 10) Description Acute Pain Behaviors Facial Grimacing,Guarding Pain Management Techniques Distraction,Re-positioning, Timing of Activity with Medications M4 PT-IP Mobility and Gait Start: 04/13/24 08:02 Freq: NEEDED Status: Active Protocol: Document 04/13/24 08:00 MB (Rec: 04/13/24 09:06 [id number]) PT-Bed Mobility Assessment Rolling Type of Rolling Log Rolling,Roll to Right Level of Assist Contact Guard Assistance,1 Person Assistance Supine to Sit Supine to Sit Contact Guard Assistance,1 Person Assistance,Bedrails Sit to Supine Sit to Supine Contact Guard Assistance Scooting Scooting to Edge of Bed Contact Guard Assistance PT-Transfer Assessment Sit to and From Stand Sit to and from Stand Minimal Assistance,1 Person Assistance,Use of Upper Extremities Equipment Transfer Assistive Device Gait Belt,Front Wheeled Walker Orthotic/Prosthetic Devices or Brace: No Transfers Transfer Destination Chair Transfer Technique Stepping Transfer Ability Level of Assist Minimal Assistance Comments Mobility Comments Pt moves slowly and has a lot of pain in back with rolling, scooting and getting to EOB. Gait Assessment Gait Gait Assistance Required: Minimum Assistance,1 Person Assist Distance (Feet) 2 Able to Maintain Weight Bearing Status Yes During Gait Assistive Devices Assistive Device Gait Belt,Front Wheeled Walker Orthotic/Prosthetic Devices or Brace: No Gait Deviations General Gait Pattern Antalgic,Decreased Stride Length,Decreased Feet Clearance,Flexed Trunk,Step-to Gait,Wide Based Gait Factors Limiting Gait Function Factors Limiting Gait Function Decreased Activity Tolerance, Decreased Strength,Difficulty Following Directions,Limited Range of Motion,Pain,Poor Balance,Poor Safety Awareness Comments Gait Comments Slow and antalgic mobility from bed to chair, decreased step-length and foot clearance PT-Balance Assessment Sitting Balance and Reactions Static Sitting Balance Ability Good Dynamic Sitting Balance Ability Good Standing Balance and Reactions Static Standing Balance Ability Good Dynamic Standing Balance Ability Fair Device Used RW M5 PT-IP Objective Assessments Start: 04/13/24 08:02 Freq: NEEDED Status: Active Protocol: Document 04/13/24 08:00 MB (Rec: 04/13/24 09:06 [id number]) Orientation Orientation/Cognition Level of Alertness Alert Orientation Name,Age,Birthday,Month,Date, Year,Day of Week,Place, Situation Language Function Ability No Deficits Noted Safety Awareness Decreased Safety Awareness Memory Description No Deficits Noted Comments Pt does occasionally mix up where towns are located and where she has lived and often states things like, [place], [place] or [facility]. Gross Range of Motion Upper Extremity ROM Impairments Defer to OT Lower Extremity ROM Assessment Within Functional Limits Strength Lower Extremity Strength Assessment Within Functional Limits Comments Strength Comments Functionally observed only and did not MMT post-op Sensation Assessment Comments Sensation Comments Pt denies paresthesias and reports pain only Muscle Tone Muscle Tone WNL Yes M6 PT-IP Treatment Start: 04/13/24 08:02 Freq: NEEDED Status: Active Protocol: Document 04/13/24 08:00 MB (Rec: 04/13/24 09:06 [id number]) Physical Therapy Treatment Education Education Provided Precautions,Post-Op Packet, Safety Other Treatments Other Treatment Performed PT reviews log rolling and brings in back booklet and OT review further during assessment M7 PT-IP Assessment and Plan Start: 04/13/24 08:02 Freq: NEEDED Status: Active Protocol: Document 04/13/24 08:00 MB (Rec: 04/13/24 09:06 [id number]) PT Summary Assessment and Plan Potential Rehabilitation Potential Good Status of Condition at Evaluation Evolving Summary Impairments Pain,ROM,Strength,Balance, Coordination,Cognition,Bed Mobility,Transfers,Gait, Activity Tolerance Progress Towards Goals Progressing Toward Goals,Slow Progress due to Pain Assessment Summary Pt is an 88 y/o female presenting with reports of high pain s/p L4-5 lami. Pt demonstrates log rolling well today and she has pain with bed mobility, transfers and stepping. Pt lives at home with grand-daughter and she does have many stair to enter. Con't acute PT for progressive mobility, gait and stair training. Review back precautions and log rolling with pt. Goals Bed Mobility Goal Independent Transfer Goal Standby Assistance,Front Wheeled Walker,Four Wheeled Walker Gait Goal Standby Assistance,Front Wheel Walker,Four Wheel Walker Gait Distance 100 Other Goals Pt will ascend and descend 3 steps x2 with rail and cane and no more than CGA to allow safe home entrance. Days to Meet Goals 5 Frequency of Treatment Frequency Of Treatment Twice a Day Treatment Plan Physical Therapy Treatment Plan Bed Mobility Training,Transfer Training,Gait Training, Therapeutic Exercise,Balance Retraining,Post Op Education, Discharge Planning,Hot or Cold Pack,Neuromuscular Re-ed, Coordination Retraining,Manual Therapy Other Recommendations and Next Treatment Review back precautions and Focus log rolling, progress gait and stair training Precautions Lumbar Precautions Log Roll,No Twisting,Limit Bending,Lifting Restriction of 10 lbs,Gait Belt above Incisional Area Weight Bearing Status Weight Bearing Status Weight Bear as Tolerated Recommendations To Nursing Amount of Assist Needed 1 Person Assist Discharge Recommendations PT Discharge Recommendations Home with Assistance,Home Health Transportation Needs at Discharge Private Vehicle
[2024-04-13 09:17] VITALS: BP 176/93; PULSE 75; RESP 18; TEMP 36.8; O2SAT 100
[2024-04-13] MEDS: FLUTICASONE 120 SPRAY/16 GM SPRAY.SUSP NASAL (09:25)
[2024-04-13 09:26] VITALS: BP 176/93; PULSE 75
[2024-04-13] MEDS: DOCUSATE 100 MG CAPSULE PO (09:26)
[2024-04-13] MEDS: LOSARTAN 50 MG TABLET 100 MG PO (09:26)
[2024-04-13] MEDS: FERROUS SULFATE 325 MG TABLET PO (09:26)
[2024-04-13] MEDS: ASCORBIC ACID 500 MG TABLET PO (09:26)
[2024-04-13] MEDS: METOPROLOL ER 50 MG TABLET PO (09:26)
--- NOTE | 2024-04-13 10:53 | OT.IP.EVAL ---
Current Diagnoses Spinal stenosis, lumbar region with neurogenic claudication (04/12/24) Surgery Performed Operation Date: 04/12/24 15:45 Actual Procedures p L4-5 Laminectomy - Saba Gao MD Past Medical History (Last Reviewed 10/24/20 @ 13:45 by Jayson Hopkins MD) Anxiety Asthma Claustrophobia Diabetes Diabetic neuropathy Fibromyalgia Hearing impaired History of revision of total replacement of right knee joint HLD (hyperlipidemia) HTN (hypertension) Osteoarthritis Rheumatoid arthritis Right carpal tunnel syndrome Surgical History (Last Updated 04/06/24 @ 14:48 by Irena Paredes RN) History of arthroplasty of both knees History of arthroplasty of left shoulder History of arthroplasty of right shoulder History of bilateral hip arthroplasty History of carpal tunnel surgery of left wrist (07/16/20) History of carpal tunnel surgery of right wrist (10/24/20) History of lumbar spinal fusion (08/2017) History of phacoemulsification of cataract of left eye with intraocular lens implantation History of revision of total shoulder arthroplasty (2017) Hx of appendectomy Hx of eye surgery Occupational Therapy Inpatient Evaluation/Re-Eval M1 PT/OT-IP Prior Functional Status Start: 04/13/24 08:02 Freq: NEEDED Status: Active Protocol: Document 04/13/24 12:30 [facility] (Rec: 04/13/24 12:53 [facility] [id number]) Medical Review Prior Functional Status Medical History Reviewed Yes Communication Unsure baseline diet and pt is [place] Mobility and Gait Pt reports she ambulates in her home with 3WRW and performs stair training with rail and cane Activities of Daily Living and IADL's Grand-daughter assists with bathing and dressing Prior Functional Level (Other details) Per pt someone is always at the house to be able to assist her. Social History Household Members family Living Arrangements House Number of Floors (Floors) One Floor Number of Stairs To Enter/Railing? 5 steps and then 7 steps with B rails and she uses one rail and cane to mobilize on steps at home Home Environment High Toilet,Walk in Shower Home Equipment Front Wheel Walker,Four Wheel Walker,Bedside Commode,Raised Toilet Seat w/Armrests,Shower Seat with Backrest,Hand Held Shower,Grab Bars Near Toilet, Grab Bars In Shower Additional Social History Comment Adjustable bed without rails M2 OT-IP Current Condition Start: 04/13/24 12:29 Freq: Status: Active Protocol: Document 04/13/24 12:30 [facility] (Rec: 04/13/24 12:53 [facility] [id number]) Occupational Therapy Current Condition Current Condition Evaluation Date 04/13/24 Treatment Diagnosis S/P L4-5 laminectomies with armand facetecomies, L4-5 partial discect Diagnosis Onset Date 04/12/24 M3 OT- IP Subjective and Pain Start: 04/13/24 12:29 Freq: Status: Active Protocol: Document 04/13/24 12:30 [facility] (Rec: 04/13/24 12:53 [facility] [id number]) OT- Subjective Occupational Therapy Visit Type Type Initial Evaluation Visit Start Time 10:10 Visit Stop Time 10:53 Occupational Therapy Visit Comments Patient Comments Pt wanting to get back to bed. Patient/Caregiver Goals TO go home. OT Pain Assessment Pain When Pain Assessed At Rest Pain Present Pain Present Pain Reported Location back Intensity 6 Scale Used Numeric (0 - 10) M4 OT- IP ADL's Start: 04/13/24 12:29 Freq: Status: Active Protocol: Document 04/13/24 12:30 [facility] (Rec: 04/13/24 12:53 [facility] [id number]) OT [id number] General Evaluation Self-Feeding Ability Independent OT ADL-Grooming General Evaluation Grooming Ability Independent Comments OT Grooming Comments after set-up OT ADL-Oral Care General Eval Oral Care Ability Independent Comments Oral Care Comments after set-up Educated if standing to spit into a cup or hinge at her hips to best follow her back precautions OT ADL-Dressing General Eval Lower Body Dressing Ability Maximum Assistance Comments OT Dressing Comments Able to show pt LB dressing equipment. OT ADL-Toileting Comments OT Toileting Comments Pt will continue to benefit from use of pads and brief at night and having the BSC next to the bed. In addition, pt aware to make sure to get assist. OT ADL-Bathing Comments OT Bathing Comments Pt's grand daughter to assist. Educated best to cover the dressing from getting wet. M5 OT- IP IADL's Start: 04/13/24 12:29 Freq: Status: Active Protocol: Document 04/13/24 12:30 [facility] (Rec: 04/13/24 12:53 [facility] [id number]) OT-Instrumental Activities of Daily Living Home Safety Awareness Awareness of Need for Assistance at Home Good Awareness Ability to Problem Solve Emergency Able to Problem Solve Situations Medication Management Medication Management Caregiver Administers Money Management Money Management Caregiver Provides Assistance Meal Preparation Meal Preparation Caregiver Provides Assist Administrative Liaison Administrative Liaison Caregiver Provides Assist Driving Driving Caregiver Provides Assist M6 OT- IP Functional Cognition Start: 04/13/24 12:29 Freq: Status: Active Protocol: Document 04/13/24 12:30 [facility] (Rec: 04/13/24 12:53 [facility] [id number]) Cognitive Factors Limiting Selfcare Function Cognitive Ability Level of Alertness Alert Patient Orientation Name,Age,Birthday,Month,Date, Year,Day of Week,Place, Situation Attention Span Ability Capable of Focused Attention Ability to Follow Commands Able to Follow One Step Commands with Increased Time, Able to Follow One Step Commands with Repetition Cognitive Comments Cognitive Assessment Comments Pt able to follow commands for back precautions for ADl and mobility needs. OT- Vision and Hearing OT- Hearing Assessment OT- Hearing Assessment Hearing Impaired,Use of Hearing Aids OT- Vision Assessment Visual Acuity Glasses All The Time M7 OT- IP Mobility and Balance Start: 04/13/24 12:29 Freq: Status: Active Protocol: Document 04/13/24 12:30 [facility] (Rec: 04/13/24 12:53 [facility] [id number]) OT- Bed Mobility Assessment Sit to Supine Sit to Supine Assist Moderate Assistance OT-Transfer Assessment Sit to and From Stand Sit to and from Stand Minimal Assistance Transfers Transfer Ability Minimal Assistance Technique Transfer Destination Bed,Chair Devices Transfer Assistive Devices Gait Belt,Front Wheeled Walker Comments Mobility Comments RUMA to stand to the FWW and to transfer to the bed. Pt needing assist to get her legs back into bed. OT- Balance Assessment Sitting Balance and Reactions Static Sitting Balance Ability Good Dynamic Sitting Balance Ability Fair Standing Balance and Reactions Static Standing Balance Ability Fair Dynamic Standing Balance Ability Fair M8 OT- IP Objective Assessments Start: 04/13/24 12:29 Freq: Status: Active Protocol: Document 04/13/24 12:30 [facility] (Rec: 04/13/24 12:53 [facility] [id number]) OT Gross Range of Motion Upper Extremity Range of Motion ROM Impairments WFL for age OT Strength Comments Strength Comments WFl for age M9 OT- IP Assessment and Plan Start: 04/13/24 12:29 Freq: Status: Active Protocol: Document 04/13/24 12:30 [facility] (Rec: 04/13/24 12:53 [facility] [id number]) OT Summary Assessment and Plan Potential Rehabilitation Potential Good Analytic Complexity at Evaluation Low Summary OT Impairments Pain,Strength,Balance, Functional Mobility,Grooming, Dressing,Toileting,Bathing, Toilet Transfers,Shower Transfers,Activity Tolerance Progress Towards Goals Progressing Toward Goals,Slow Progress due to Pain Assessment Summary Pt low complexity and main barriers are pain, needing assist for transfers and for all ADL needs. Pt to go home with 24 available assist. Pt states has been doing outpt PT for BPBV and on hold until after recovery of her back. Pt did not complain of any symptoms during OT eval. Goals Grooming Goal Independent Dressing Goal Minimal Assistance Toileting Goal Minimal Assistance Toilet Transfer Goal Standby Assistance Shower Transfer Goal Contact Guard Assistance Days to Meet Goals 7 Frequency of Treatment Other frequency 5x/week Treatment Plan OT Treatment Plan ADL Training,Functional Mobility,Patient/Family Education,Discharge Planning Discharge Recommendations OT Discharge Recommendations Home with 24/7 Assist Available Home Equipment Needs LB dressing equipment, toilet paper aid Transportation Needs at Discharge Private Vehicle
[2024-04-13] MEDS: HYDROCODONE/ACET 5/325 TABLET 2 TAB PO (11:18)
--- NOTE | 2024-04-13 13:06 | PT.IPTN ---
Current Diagnoses Spinal stenosis, lumbar region with neurogenic claudication (04/12/24) Surgery Performed Operation Date: 04/12/24 15:45 Actual Procedures p L4-5 Laminectomy - Saba Gao MD Physical Therapy Treatment Note M2 PT-IP Current Condition Start: 04/13/24 08:02 Freq: NEEDED Status: Active Protocol: Document 04/13/24 08:00 MB (Rec: 04/13/24 09:06 MB [id number]) Physical Therapy Current Condition Current Condition Evaluation Date 04/13/24 Treatment Diagnosis S/p L4-5 laminectomy and partial disectomy M3 PT-IP Subjective Start: 04/13/24 08:02 Freq: NEEDED Status: Active Protocol: Document 04/13/24 14:03 TS (Rec: 04/13/24 14:18 TS [id number]) Subjective Physical Therapy Visit Type Type Treatment Note Visit Start Time 13:06 Visit Stop Time 13:50 Notes Family present 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 She is agreeable to PT. Therapy Pain Assessment Pain When Pain Assessed At Rest Pain Present Pain Present Pain Reported M4 PT-IP Mobility and Gait Start: 04/13/24 08:02 Freq: NEEDED Status: Active Protocol: Document 04/13/24 14:03 TS (Rec: 04/13/24 14:18 TS [id number]) PT-Bed Mobility Assessment Rolling Type of Rolling Log Rolling,Roll to Right Level of Assist Contact Guard Assistance,1 Person Assistance Supine to Sit Supine to Sit Minimal Assistance,1 Person Assistance,Bedrails Sit to Supine Sit to Supine Minimal Assistance,1 Person Assistance Scooting Scooting to Edge of Bed Standby Assistance PT-Transfer Assessment Sit to and From Stand Sit to and from Stand Minimal Assistance,1 Person Assistance,Use of Upper Extremities Equipment Transfer Assistive Device Gait Belt,Front Wheeled Walker Orthotic/Prosthetic Devices or Brace: No Comments Mobility Comments Pt was educated on spinal precautions of no bending, no twisting and no lifting of more than 10LBS. STS with FWW Amanuel, pt requires cues for STS technique. She ambulated with FWW ~25'CGA/SBA with a slow step to gait. Pt was brought to stairs in w/c. She performed steps x3 with single rail, cane and CGA from family member. She ambulated another ~25'SBA/CGA with FWW, requested brought back to room in w/c. She ambulated another ~15' with 4WW, which pt has at home, she had balance with 4WW. She performed bed mobility CGA/Amanuel and required max cues for sequencing. Recommended pt spend time in chair to avoid difficulty of bed if needed. Pt was left back in chair, all needs met, nursing notified. Gait Assessment Gait Gait Assistance Required: Standby Assistance,Contact Guard Assist,1 Person Assist Distance (Feet) 65 Able to Maintain Weight Bearing Status Yes During Gait Assistive Devices Assistive Device Gait Belt,Front Wheeled Walker ,4 Wheeled Walker Orthotic/Prosthetic Devices or Brace: No Gait Deviations General Gait Pattern Antalgic,Decreased Stride Length,Decreased Feet Clearance,Flexed Trunk,Step-to Gait,Wide Based Gait Factors Limiting Gait Function Factors Limiting Gait Function Decreased Activity Tolerance, Decreased Strength,Difficulty Following Directions,Limited Range of Motion,Pain,Poor Balance,Poor Safety Awareness Comments Gait Comments Pt has 3WW and 4WW at home, recommended use of 4WW. Stair Climbing Assessment Evaluation Level of Assist On Stairs Contact Guard Assistance,1 Person Assistance Devices Stair Climbing Assistive Devices Straight Cane,Left Railing Technique/Endurance Stair Climbing Direction Ascend and Descend Stair Climbing Technique Step to Step Number of Steps Climbed 3 PT-Balance Assessment Sitting Balance and Reactions Static Sitting Balance Ability Good Dynamic Sitting Balance Ability Fair Standing Balance and Reactions Static Standing Balance Ability Fair Dynamic Standing Balance Ability Fair Device Used FWW/4WW M5 PT-IP Objective Assessments Start: 04/13/24 08:02 Freq: NEEDED Status: Active Protocol: Document 04/13/24 08:00 MB (Rec: 04/13/24 09:06 MB [id number]) Orientation Orientation/Cognition Level of Alertness Alert Orientation Name,Age,Birthday,Month,Date, Year,Day of Week,Place, Situation Language Function Ability No Deficits Noted Safety Awareness Decreased Safety Awareness Memory Description No Deficits Noted Comments Pt does occasionally mix up where towns are located and where she has lived and often states things like, [place], [place] or [facility]. Gross Range of Motion Upper Extremity ROM Impairments Defer to OT Lower Extremity ROM Assessment Within Functional Limits Strength Lower Extremity Strength Assessment Within Functional Limits Comments Strength Comments Functionally observed only and did not MMT post-op Sensation Assessment Comments Sensation Comments Pt denies paresthesias and reports pain only Muscle Tone Muscle Tone WNL Yes M6 PT-IP Treatment Start: 04/13/24 08:02 Freq: NEEDED Status: Active Protocol: Document 04/13/24 14:03 TS (Rec: 04/13/24 14:18 TS [id number]) Physical Therapy Treatment Education Education Provided Precautions,Post-Op Packet, Safety M7 PT-IP Assessment and Plan Start: 04/13/24 08:02 Freq: NEEDED Status: Active Protocol: Document 04/13/24 14:03 TS (Rec: 04/13/24 14:18 TS [id number]) PT Summary Assessment and Plan Potential Rehabilitation Potential Good Summary Impairments Pain,ROM,Strength,Balance, Coordination,Cognition,Bed Mobility,Transfers,Gait, Activity Tolerance Progress Towards Goals Progressing Toward Goals Assessment Summary Irene is making some progress with her mobility. She increased her ambulation to ~50' with FWW and ~15 with 4WW. She requires heavy cueing for mobility, especially with bed mobility. Recommended pt try sleeping in recliner at home to avoid the difficulty of getting in/out of bed on her own. She performed stairs x3 with single handrail and use of SPC with CGA from family member. PT is recommending pt return home with assist and HHPT. Goals Bed Mobility Goal Independent Transfer Goal Standby Assistance,Front Wheeled Walker,Four Wheeled Walker Gait Goal Standby Assistance,Front Wheel Walker,Four Wheel Walker Gait Distance 100 Other Goals Pt will ascend and descend 3 steps x2 with rail and cane and no more than CGA to allow safe home entrance. Days to Meet Goals 5 Frequency of Treatment Frequency Of Treatment Twice a Day Treatment Plan Physical Therapy Treatment Plan Bed Mobility Training,Transfer Training,Gait Training, Therapeutic Exercise,Balance Retraining,Post Op Education, Discharge Planning,Hot or Cold Pack,Neuromuscular Re-ed, Coordination Retraining,Manual Therapy Other Recommendations and Next Treatment Review back precautions and Focus log rolling, progress gait and stair training Precautions Lumbar Precautions Log Roll,No Twisting,Limit Bending,Lifting Restriction of 10 lbs,Gait Belt above Incisional Area Weight Bearing Status Weight Bearing Status Weight Bear as Tolerated Recommendations To Nursing Amount of Assist Needed 1 Person Assist Discharge Recommendations PT Discharge Recommendations Home with Assistance,Home Health Transportation Needs at Discharge Private Vehicle
--- NOTE | 2024-04-13 13:15 | CM.DANOTE ---
Initial DCP Assessment Visit Note Reviewed EMR and team rounds for status updates. Met with pt at bedside to introduce self and role. Pt was found to be alert/oriented, and able to share that she is having a lot more pain than she thought she would be in. She lives modified independently with her granddaughter and her in their own home in [place]. Family will also plan to transport her at time of d/c. Payor: Manuel Dietz Attending: Dr. Gao Pt is a 88 year-old F post-op day 1 from a laminectomy/discectomy. She has a hx of worsening lower back pain and balance issues. She uses a walker and a cane at baseline, and has been able to navigate the 12-steps in her home by using her cane and pulling herself up the stairs. Pt has tried conservative measures at pain control such as lidocaine patches, opiods, and NSAIDS without lasting benefit. SOCK LINER called pt's granddaughter to discuss the plan for home at time of d/c, they will be arriving here later this afternoon to work with PT and cg training. DCP will continue to follow and assist with any evolving needs, however they decline any need for assistance/resources from DCP at this time. Discharge Planning/Care Management CM Discharge Assessment Start: 04/13/24 13:08 Freq: Status: Active Protocol: Document 04/13/24 13:08 DPL (Rec: 04/13/24 13:15 DPL [id number]) Discharge Planning Assessment Assigned Home Care Liaison RABIA Wang Advance Directives? No History Provided By Patient,Family Member,Medical Record Expected Length of Stay 1 Prior Living Arrangements House Household Members family Type of transporation used prior to Relies on Others admit Independent with ADL's No: modified independent w/ cane and walker Is patient alert and oriented? Yes Needs Assistance With Meal Prep,Managing Medications ,Home Chores / Shopping Caregiver for Another No DME Already Rented / Owned Elevated Toilet Seat,FWW / Walker,Cane Patient/Family Preference OP PT Therapy Barriers to Discharge No Discharge Plan Home Community Services Physical Therapy Transportation Arrangement Family Referrals Initiated None needed Whiteboard Updated in Patient Room with Yes name and ext. # of Home Care Liaison Review Status In Process Please Provide Date Initial DC 04/13/24 Assessment Was Performed Pre-Anesthesia Assessment Start: 04/06/24 14:41 Freq: Status: Active Protocol: Document 04/06/24 14:41 CAB (Rec: 04/06/24 15:18 CAB [id number]) Pre-Anesthesia Assessment PAC Comment Only cardiac record identified is the stress test w/ clearance form 12/14/23 from [facility]. Faxed records request to [facility] but they said they had no record of this patient. Spoke briefly with grandmario who states pt does not see cardiology regularly, only for stress test. Patient Information Reviewed Via Chart Review Diagnostic Results EKG,Type and Screen Primary Care Provider Patricia Obrien Comment Clearance form 11/10/23 scanned and in surgery folder Seen Specialist in Last 12 Months Yes Specialist Seen Orthopedist Primary Language Turkish Preferred Language [employer] Librarian Required No Height 154.94 cm Weight 86.183 kg Body Mass Index (BMI) 35.9 Hx Anesthesia Reactions Yes: Trouble coming out of anesthesia, long time to clear Hx Family Anesthesia Reaction No Hx Malignant Hyperthermia No Hx Blood Transfusions No Hx Blood Transfusion Reaction No Anesthesia Review Requested No Key Account Coordinator No alcohol intake former Smoking Status Never smoker Substance Use Type does not use Patient is completely paralyzed or No completely immobile Mental Status Oriented to own ability Does patient have VILLARREAL/SOB Yes: r/t Asthma Hx Sleep Apnea No CPAP/BIPAP use not prescribed Currently Taking a Beta Erik Yes: Metoprolol Can You Climb a Flight of Stairs Without No SOB Hx Chest Pain No Hx SOB Yes: r/t Asthma Hx Syncope or Dizziness No Has a School Boat Driver Yes School Boat Driver name Dr. Rafi Bonilla Cardiac Testing Yes: Stress echo @ [facility] Hx Pacemaker/ICD No Pacemaker Rep Required? No Cardiac Clearance Received Yes Comment Cardiac records scanned and in surgery folder Hx Urinary Self Catheterization No Diabetes Yes: Checks blood sugar once each am HgbA1C 5.4 Date 04/05/24 Patient No Lactating No Hx Drug Resistant Organism No Presence of External or Internal Medical Yes: both hips,knees,shoulders Devices ,back hardware Marital Status / Lives With family Patient Discharge Plan Description Return Home Do You Have Any Spiritual Beliefs That No May Affect Your HC Choices? Do You Have Any Cultural Practices That No May Affect Your HC Choices? Emergency Contact Name Vaishnavi (granddaughter) Emergency Contact Advance Directives? No Power of Monument Installer No
== END 2024-04-13 15:22 | disposition home or self-care (01) ==
LOC: OR 13:50 → AC 17:01
PROVIDERS: PCP Internal Medicine; Referring Provider Orthopaedic Surgery Orthopaedic Surgery of the Spine; Visit Provider Orthopaedic Surgery Orthopaedic Surgery of the Spine
PROC: (CPT 63047; principal; 2024-04-12 15:45)
DX: M48.062 Spinal stenosis, lumbar region with neurogenic claudication (principal); M54.16 Radiculopathy, lumbar region; M43.16 Spondylolisthesis, lumbar region
CPT/HCPCS: 63047; 72100; 76000; 97116; 97162; 97165; 97530; 97535; J0171; J0690; J1100; J1170; J2405; J2704; J2919; J3010